=== PATIENT | male | born 1995 | race African-American/Black ===

== ENCOUNTER 2018-04-30 23:23 | Emergency (ER) | payer SELFPAY ==
[2018-04-30] MEDS ORDERED: KETOROLAC 15 MG/1 ML SDV IVP ONE (23:46)
--- NOTE | 2018-04-30 23:49 | EDPHY ---
H & P Stated Complaint: CP Time Seen by Provider: 04/30/18 23:30 HPI/ROS: HPI The patient presents with chest pain which began about 1 hr prior to arrival when he went to lying in bed. He says he smoked marijuana before going to bed and was feeling fine. However when he laid down in bed he began to experience chest tightness which is anterior, around his sternum, radiates to both sides of his chest and is moderate in severity. He said he could not get comfortable. He does not have any shortness of breath, nausea, vomiting, dizziness, diaphoresis. He says he has had chest pain before but nothing quite so severe. He denies any cough or fever. He does not have any leg swelling, personal or family history of DVT PE, recent airplane travel.. REVIEW OF SYSTEMS 10 systems were reviewed and negative with the exception of the elements mentioned in the history of present illness. PMHx: Healthy, no medications Soc Hx: College student, occasional marijuana use FHx: No family history of DVT PE, CAD PHYSICAL General Appearance: Alert, no distress Eyes: Pupils equal and round no pallor or injection ENT, Mouth: Mucous membranes moist Respiratory: There are no retractions, lungs are clear to auscultation Cardiovascular: Regular rate and rhythm , there is sternal tenderness Gastrointestinal: Abdomen is soft and with mild tenderness in the epigastrium, no masses, bowel sounds normal Neurological: A&O, moves all extremities Skin: Warm and dry, no rashes Musculoskeletal: Neck is supple non tender Extremities: symmetrical, full range of motion Psychiatric: Patient is oriented X 3, there is no agitation Source: Patient Exam Limitations: No limitations - Personal History Current Tetanus/Diphtheria Vaccine: Yes Current Tetanus Diphtheria and Acellular Pertussis (TDAP): Yes - Medical/Surgical History Hx Asthma: No Hx Chronic Respiratory Disease: No Hx Diabetes: No Hx Cardiac Disease: No Hx Renal Disease: No Hx Cirrhosis: No Hx Alcoholism: No Hx HIV/AIDS: No Hx Splenectomy or Spleen Trauma: No - Social History Smoking Status: Never smoked Constitutional: Initial Vital Signs Temperature (C) 36.6 C 04/30/18 23:25 Heart Rate 81 04/30/18 23:25 Respiratory Rate 16 04/30/18 23:25 Blood Pressure 135/68 H 04/30/18 23:25 O2 Sat (%) 100 04/30/18 23:25 O2 Delivery Mode Room Air Allergies/Adverse Reactions: No Known Allergies Allergy (Unverified 04/30/18 23:27) Medical Decision Making - Diagnostics EKG Interpretation: EKG: Complete interpretation has been separately recorded in the [facility] archive. Summary impression: Normal sinus rhythm with diffuse ST segment elevations consistent with male pattern Imaging Results: Chest x-ray shows no infiltrate, no cardiomegaly, no pneumothorax, interpreted by me, radiology interpretation is pending. Imaging: I viewed and interpreted images myself Differential Diagnosis: 22-year-old healthy man presents with chest pain after using marijuana while lying in bed. On exam, vital signs are normal and he is well-appearing. Differential diagnosis includes costochondritis, GERD, pericarditis, PE, less likely ACS given his young age. In the emergency department, patient was given Toradol with some improvement in his symptoms. Labs were checked including troponin and D-dimer and these were unremarkable. Chest x-ray and EKG were normal as well. The feel he is suffering from GERD verses less likely costochondritis. I have explained this to him. He will be discharged from the emergency department. He is happy with this plan. - Data Points Laboratory Results: Laboratory Results 04/30/18 23:45 04/30/18 23:45 05/01/18 04/30/18 04/30/18 00:06 23:45 23:45 WBC RBC Hgb Hct MCV MCH MCHC RDW Plt Count MPV Neut % (Auto) Lymph % (Auto) Polk % (Auto) Eos % (Auto) Baso % (Auto) Nucleat RBC Rel Count Absolute Neuts (auto) Absolute Lymphs (auto) Absolute Monos (auto) Absolute Eos (auto) Absolute Basos (auto) Absolute Nucleated RBC Immature Gran % Immature Gran # RBC/WBC/PLT Morphology Platelet Estimate Smear Review By D-Dimer < 0.27 ug/mLFEU ug/mLFEU (0.00-0.50) Sodium 139 mEq/L mEq/L (135-145) Potassium 3.9 mEq/L mEq/L (3.3-5.0) Chloride 105 mEq/L mEq/L (97-110) Carbon Dioxide 24 mEq/l mEq/l (22-31) Anion Gap 10 mEq/L mEq/L (8-16) BUN 9 mg/dL mg/dL (7-23) Creatinine 0.9 mg/dL mg/dL (0.7-1.3) Estimated GFR > 60 Glucose 102 mg/dL H mg/dL (70-100) Calcium 9.8 mg/dL mg/dL (8.5-10.4) POC Troponin I 0.00 ng/mL ng/mL (0.00-0.08) 04/30/18 23:45 WBC 8.33 10^3/uL 10^3/uL (3.80-9.50) RBC 4.76 10^6/uL 10^6/uL (4.40-6.38) Hgb 14.4 g/dL g/dL (13.7-17.5) Hct 42.4 % % (40.0-51.0) MCV 89.1 fL fL (81.5-99.8) MCH 30.3 pg pg (27.9-34.1) MCHC 34.0 g/dL g/dL (32.4-36.7) RDW 12.8 % % (11.5-15.2) Plt Count 278 10^3/uL 10^3/uL (150-400) MPV 10.3 fL fL (8.7-11.7) Neut % (Auto) 26.1 % L % (39.3-74.2) Lymph % (Auto) 32.5 % % (15.0-45.0) Polk % (Auto) 6.4 % % (4.5-13.0) Eos % (Auto) 34.1 % H % (0.6-7.6) Baso % (Auto) 0.8 % % (0.3-1.7) Nucleat RBC Rel Count 0.0 % % (0.0-0.2) Absolute Neuts (auto) 2.17 10^3/uL 10^3/uL (1.70-6.50) Absolute Lymphs (auto) 2.71 10^3/uL 10^3/uL (1.00-3.00) Absolute Monos (auto) 0.53 10^3/uL 10^3/uL (0.30-0.80) Absolute Eos (auto) 2.84 10^3/uL H 10^3/uL (0.03-0.40) Absolute Basos (auto) 0.07 10^3/uL 10^3/uL (0.02-0.10) Absolute Nucleated RBC 0.00 10^3/uL 10^3/uL (0-0.01) Immature Gran % 0.1 % % (0.0-1.1) Immature Gran # 0.01 10^3/uL 10^3/uL (0.00-0.10) RBC/WBC/PLT Morphology TNP Platelet Estimate TNP Smear Review By Pending D-Dimer Sodium Potassium Chloride Carbon Dioxide Anion Gap BUN Creatinine Estimated GFR Glucose Calcium POC Troponin I Medications Given: Discontinued Medications Ketorolac Tromethamine (Toradol) 15 mg IVP EDNOW ONE Stop: 04/30/18 23:47 Last Admin: 04/30/18 23:52 Dose: 15 mg Point of Care Test Results: Chemistry 05/01/18 00:06 POC Troponin I 0.00 ng/mL ng/mL (0.00-0.08) Departure - Departure Disposition: Home, Routine, Self-Care Clinical Impression: Chest pain Qualifiers: Chest pain type: unspecified Qualified Code(s): R07.9 - Chest pain, unspecified Condition: Good Instructions: Chest Wall Pain (ED) Additional Instructions: You should return to the emergency department if your worse in any way. You should maintain a bland diet for the next several days. You can take ibuprofen 400 mg every 6 hr as needed for pain. Referrals: [facility]CI[facility] Whitlock,. [Clinic] - As per Instructions
[2018-04-30 23:55] LABS: PLATELET COUNT 278 10^3/uL (150-400)
[2018-05-01 01:07] VITALS: BP 110/70
--- NOTE | 2018-05-01 06:06 | CPEKG ---
Test Reason : OPEN Blood Pressure : / mmHG Vent. Rate : 069 BPM Atrial Rate : 070 BPM P-R Int : 135 ms QRS Dur : 099 ms QT Int : 371 ms P-R-T Axes : 070 062 024 degrees QTc Int : 398 ms Sinus rhythm Confirmed by Maylin Osuna ([id number]) on 05/01/2018 6:06:24 AM Referred By: Confirmed By:Maylin Osuna
== END 2018-05-01 01:06 | disposition home or self-care (01) ==
DX: R07.9 Chest pain, unspecified (principal)
CPT/HCPCS: 84484-PO; 96374; J1885